=== PATIENT | female | born 1970 | race Caucasian/White ===

== ENCOUNTER 2024-07-18 12:46 | Inpatient (IN) | payer OTHER, SELFPAY ==
--- NOTE | 2024-07-18 | ECG_ITS ---
Test Reason : MEDICAL CLEARANCE Blood Pressure : / mmHG Vent. Rate : 055 BPM Atrial Rate : 055 BPM P-R Int : 206 ms QRS Dur : 082 ms QT Int : 480 ms P-R-T Axes : 043 052 038 degrees QTc Int : 459 ms Sinus bradycardia Nonspecific T wave abnormality Abnormal ECG No previous ECGs available Referred By: Keshav Sarkar Electronically Signed By:MARIKA LOCK MD
[2024-07-18 12:57] VITALS: BP 137/50; PULSE 79; RESP 20; TEMP 36.3; O2SAT 97; BMI 32.0
--- NOTE | 2024-07-18 12:59 | ED_ITS ---
HPI - Psych General Chief Complaint: Psychiatric Symptoms Stated Complaint: requesting higher level care Time Seen by Provider: 07/18/24 13:08 Source: patient Mode of arrival: ambulatory Limitations: no limitations History of Present Illness ED Provider: DR. Sarkar HPI Narrative: A 53-year-old female history of drug abuse patient is been sectioned 35 by her family to stop using cocaine, patient brought in from [facility] for evaluation of depression, SI patient feels depressed and stressed lately has been tearful, feels she should not be a life, no a specific plan to hurt herself, no HI, no hallucination.. Patient otherwise declined CP, SOB, abdominal pain. Related Data Home Medications ?Medication ?Instructions ?Recorded ?Confirmed albuterol 90 mcg/actuation aerosol 90 mcg inhalation Q4H PRN SOB 07/18/24 07/18/24 inhaler albuterol sulfate 2.5 mg/0.5 mL 5 mg inhalation Q4H PRN Shortness 07/18/24 07/18/24 solution for nebulization Of Breath buspirone 15 mg tablet 15 mg PO TID 07/18/24 07/18/24 buspirone 5 mg tablet 5 mg PO TID 07/18/24 07/18/24 clonidine HCl 0.1 mg tablet 0.1 mg PO TID PRN Anxiety 07/18/24 07/18/24 clonidine HCl 0.2 mg tablet 0.2 mg PO TID 07/18/24 07/18/24 doxepin 100 mg capsule 100 mg PO BEDTIME 07/18/24 07/18/24 fluticasone propionate 50 1 spray intranasal DAILY 07/18/24 07/18/24 mcg/actuation nasal spray,suspension lamotrigine 200 mg tablet 200 mg PO BID 07/18/24 07/18/24 lisinopril 20 mg tablet 20 mg PO DAILY 07/18/24 07/18/24 lorazepam 1 mg tablet 1 mg PO DAILY PRN Anxiety 07/18/24 07/18/24 lumateperone 42 mg capsule 42 mg PO DAILY 07/18/24 07/18/24 (Caplyta) methadone 10 mg/mL oral 120 mg PO DAILY 07/18/24 07/18/24 concentrate (Methadone Intensol) topiramate 50 mg tablet 50 mg PO BID 07/18/24 07/18/24 venlafaxine 150 mg 150 mg PO QAM 07/18/24 07/18/24 capsule,extended release 24 hr venlafaxine 75 mg capsule,extended 75 mg PO QAM 07/18/24 07/18/24 release 24 hr Allergies Allergy/AdvReac Type Severity Reaction Status Date / Time diphenhydramine AdvReac Irritable Verified 07/18/24 12:59 [From Benadryl] morphine AdvReac Gastrointestinal Verified 07/18/24 12:59 Upset Review of Systems Review of Systems: All other systems are reviewed and are negative Constitutional: Reports as per HPI and Reports no additional constitutional complaints Eyes: Reports as per HPI and Reports no additional eye complaints Reports system reviewed and no additional complaints, except as documented Cardiovascular: Reports as per HPI and Reports no additional cardiovascular complaints Respiratory: Reports as per HPI and Reports no additional respiratory complaints Gastrointestinal: Reports as per HPI and Reports no additional gastrointestinal complaints Genitourinary: Reports no additional female genitourinary complaints Musculoskeletal: Reports no additional musculoskeletal complaints Skin/Breast: Reports system reviewed and no additional complaints, except as docu Psychiatric: Reports no additional psychiatric complaints Endocrine: Reports no additional endocrine complaints Hematologic/Lymphatic: Reports no additional hematologic/lymphatic complaints Allergic/Immunologic: Reports no additional allergic/immunologic complaints Reports system reviewed and no additional complaints, except as documented and Reports Abnormal speech present [facility] Social History Social History Alcohol intake: current Smoked in Last 30 Days: No Use of substances other than those prescribed or required for medical reasons: Yes Substance Use Type: Crack/Cocaine Substance Use Frequency: Occasionally Advance Directives: No Advance Directives Information Provided: Yes Patient : No Physical Exam Vital Signs: Vital Signs: Last Vital Signs Temp 97.4 F 07/18/24 12:57 Pulse 79 07/18/24 12:57 Resp 20 07/18/24 12:57 BP 137/50 L 07/18/24 12:57 Pulse Ox 97 07/18/24 12:57 O2 Del Method Room Air 07/18/24 12:57 BMI result Body Mass Index 32.0 Vital signs have been reviewed and appear to be correct. Blood pressure elevated. Heart rate normal. Respiratory rate normal. Temperature normal. Oxygen saturation normal. Appearance: Alert. Oriented X3. No acute distress. Head: Normal external exam. Normocephalic. Atraumatic. No Maya signs noted. No raccoon eyes noted Eyes: PERRLA. EOMI. Conjunctiva and sclera normal. Eyelids normal. ENT: TM's Normal. Pharynx normal. Uvula midline. Moist mucous membranes. No trismus noted. No drooling noted. No muffled voice noted. Neck: Normal inspection. Neck supple. FROM. No adenopathy. Thyroid Normal. No meningeal signs. No neck mass noted. CVS: Normal heart rate and rhythm. Heart sound normal. No murmurs noted. Pulses normal throughout. Respiratory: No respiratory distress. Painless inspiration. Breath sounds normal. No wheezes/rales/rhonchi noted. Chest nontender. No accessory muscle usage noted or decreased air movement noted. Abdomen: Soft and nontender. Bowel sounds normal in all 4 quadrants. No distention noted. No organomegaly noted. No visible injury noted. Back: No CVA tenderness. Full range of motion noted. Skin: Skin warm and dry. Normal skin color. Normal skin turgor. No rashes/lesions/lacerations noted. Extremities: No lower extremity edema. Extremities exhibit normal range of motion. Extremities nontender. Neuro: Oriented X 3. Cranial nerve exam: II-XII are grossly intact No motor deficit. No sensory deficit. Reflexes normal. Patient Orientation: Person, Place, Time and Situation, okay hygiene and grooming. Fair eye contact, attentive, no tics or tremors. Level of Consciousness: Awake, Appropriate and Alert Patient Behavior: Appropriate, Guarded, Cooperative and Anxious Mood Description: Constricted, Blunted and Apprehensive Affect Description: Constricted, Blunted and Apprehensive Patient Cognition Impaired: No Ability to Follow Directions: Excellent Speech Pattern: Clear, Appropriate and Spontaneous Speech, nonpressured, spontaneous with regular rate and rhythm, normal volume and prosody. No dysarthria. Memory Description: Intact, Immediate Intact and Short Term Intact Hallucinations: None Delusions: Not Present Thought Process: Intact Thought Content: Feels depressed, depressed affect, feels suicidal with out plans. denies Homicidal Ideation. Depressive Symptoms: Not present. Judgement and Insight: Limited but adequate. Course Course Course Narrative: This is an RME: Additional HPI, ROS, PE not included below will be deferred to primary provider. RME assessment and note performed by: Allison Davies PA-C This is a [id number]-female, with a hx of bipolar, depression, anxiety, opioid use disorder on methadone [facility] in [place], who presents to the emergency department with worsening depression. Reporting she feels as if she is a fog. Reports suicidal ideation without a specific plan. Has been fighting cocaine use lately. Plan: Labs, UA, care team Reevaluation(s) Reevaluation #1: Medically cleared, start physician observation, await for care team input. Time: 14:30 Reevaluation #2: Seen and evaluated by care team, patient is under section 12 now, bed search is underway. Time: 15:15 Medications Administered Generic Name Dose Route Start Last Admin Trade Name Freq PRN Reason Stop Dose Admin Clonidine HCl 0.2 mg 07/18/24 15:00 07/18/24 14:56 Clonidine Hcl 0.2 Mg Tablet PO 0.2 mg TID IRMA Administration Protocol Fluticasone Propionate 1 spray 07/18/24 14:30 07/18/24 14:57 Fluticasone Propionate Nasal 16 Gm [place] NOSTRIL-B Not Given DAILY IRMA Lamotrigine 200 mg 07/18/24 14:30 07/18/24 14:53 Lamotrigine 100 Mg Tablet PO Not Given BID IRMA Lisinopril 20 mg 07/18/24 14:30 07/18/24 14:54 Lisinopril 20 Mg Tablet PO Not Given DAILY IRMA Protocol Lorazepam 1 mg 07/18/24 14:27 07/18/24 14:56 Lorazepam 1 Mg Tablet PO 1 mg DAILY PRN Administration Anxiety Methadone HCl 120 mg 07/18/24 14:30 07/18/24 14:59 Methadone Hcl 20 Mg/2 Ml Oral.Conc PO Not Given DAILY IRMA Topiramate 50 mg 07/18/24 14:30 07/18/24 14:56 Topiramate 25 Mg Tablet PO 50 mg BID IRMA Administration Medical Decision Making Differential Diagnosis Differential Diagnoses: The differential diagnosis associated with the presentation includes (Substance abuse, electrolyte derangement, severe anemia, SI, HI, acute psychosis, medical clearance, psych evaluation.) Admission/Observation Consideration of admission/observation: Escalation of care including admission/observation considered Lab Data MDM Lab Attestation statement: I reviewed the patient's lab results. Labs: Lab Results 07/18/24 Range/Units 13:33 Urine Color Yellow Urine Appearance Cloudy Urine pH 6.0 (5.0-9.0) Ur Specific [place] 1.025 (1.005-1.025) Urine Protein Negative (Neg-Trace) mg/dL Urine Glucose (UA) Negative (Negative) mg/dL Urine Ketones Trace (Negative) mg/dL Urine Blood Negative (Negative) Urine Nitrite Negative (Negative) Ur Leukocyte Esterase Moderate (2+) H (Negative) Urine RBC 0-2 (0-2) /HPF Urine WBC 6-10 (0-5) /HPF Ur Squamous Epith Cells >20 (0-2) /HPF Urine Bacteria 4+ (None Seen) Hyaline Casts 0-2 (0-2) /LPF Urine Test NEGATIVE (NEGATIVE) Urine Opiates Screen Not Detected (Not Detect) Ur Buprenorphine Scrn Not Detected (Not Detect) ng/mL Ur Oxycodone Screen Not Detected (Not Detect) ng/mL Urine Methadone Screen Positive H (Not Detect) ng/mL Urine Fentanyl Screen Not Detected (Not Detect) Ur Barbiturates Screen Not Detected (Not Detect) Ur Phencyclidine Scrn Not Detected (Not Detect) Ur Amphetamines Screen Not Detected (Not Detect) U Benzodiazepines Scrn Not Detected (Not Detect) Urine Cocaine Screen POSITIVE H (Not Detect) U Marijuana (THC) Screen Not Detected (Not Detect) Discharge Plan Discharge Clinical Impression: Depression, Substance abuse Patient Disposition: Still a Patient Prescriptions: No Action clonidine HCl 0.1 mg Tablet 0.1 mg PO TID PRN (Reason: Anxiety) lisinopril 20 mg Tablet 20 mg PO DAILY Ventolin 90 mcg/actuation Aerosol 90 mcg INHALATION Q4H PRN (Reason: SOB) albuterol sulfate 2.5 mg/0.5 mL Solution For Nebulization 5 mg INHALATION Q4H PRN (Reason: Shortness Of Breath) clonidine HCl 0.2 mg Tablet 0.2 mg PO TID Rx Instructions: Take 1 tablet by mouth 3 times a day at 8am, at 2pm and at 8pm doxepin 100 mg Capsule 100 mg PO BEDTIME methadone [Methadone Intensol] 10 mg/mL Concentrate 120 mg PO DAILY lorazepam 1 mg Tablet 1 mg PO DAILY PRN (Reason: Anxiety) venlafaxine 75 mg capsule,extended release 24hr 75 mg PO QAM topiramate 50 mg tablet 50 mg PO BID venlafaxine 150 mg capsule,extended release 24hr 150 mg PO QAM lamotrigine 200 mg Tablet 200 mg PO BID fluticasone propionate 50 mcg/actuation [place],Suspension 1 spray INTRANASAL DAILY Rx Instructions: administer into each nostril buspirone 5 mg Tablet 5 mg PO TID buspirone 15 mg Tablet 15 mg PO TID Caplyta 42 mg Capsule 42 mg PO DAILY Interventions: Potter-Suicide Risk Severity Scale Last Done: 07/18/24 13:47 Print Language: Mauritian
[2024-07-18 13:40] LABS: Appearance Urine Cloudy; Color Urine Yellow; Glucose Urine UA Negative (Negative); Leukocyte Esterase Urine Moderate (2+) (Negative); Nitrite Urine Negative (Negative); Specific Gravity - Urine 1.025 (1.005-1.025); UMIC TRIGGER UACC YES; Urine Blood Negative (Negative); Urine Ketones Trace mg/dL (Negative); Urine Protein Negative (Neg-Trace)
[2024-07-18 13:47] LABS: Bacteria Urine 4+ (None Seen); Hyaline Casts Urine 0-2 /LPF (0-2); RBC Urine 0-2 /HPF (0-2); Squamous Epithelial Cell Urine >20 /HPF (0-2); UACC Culture Trigger YES
[2024-07-18 13:54] LABS: Amphetamine Screen Urine Not Detected (Not Detect); Barbiturates, Urine Not Detected (Not Detect); Benzodiazepines Screen Urine Not Detected (Not Detect); Buprenorphine Scr Not Detected (Not Detect); Cannabinoid Screen Urine Not Detected (Not Detect); Cocaine Screen Urine POSITIVE (Not Detect); Fentanyl, urine Not Detected (Not Detect); Methadone Screen, Urine Positive (Not Detect); Opiate Screen Urine Not Detected (Not Detect); Oxycodone Screen Urine Not Detected (Not Detect); Phencyclidine Screen Urine Not Detected (Not Detect)
--- NOTE | 2024-07-18 14:42 | MHC.CARE ---
Pt meets the criteria for IPLOC and will be an inpatient psychiatric bed search at this time. Section 12a in chart. Provider in agreement with disposition.
[2024-07-18] MEDS: LORazepam 1 MG TABLET PO (14:56)
[2024-07-18] MEDS: Topiramate 25 MG TABLET 50 MG PO ×2 (14:56→21:20)
[2024-07-18] MEDS: cloNIDine HCL 0.2 MG TABLET PO ×2 (14:56→21:20)
[2024-07-18 14:57] LABS: UPreg QC Valid YES; Urine Pregnancy NEGATIVE (NEGATIVE)
[2024-07-18 15:19] LABS: MANUAL DIFF FLAG NO
[2024-07-18 15:21] LABS: Basophils Percent Auto 0.6 % (0-2); Eosinophils Absolute Auto 0.1 X10*3/uL (0.0-0.4); Eosinophils Percent Auto 2.3 % (0-4); Hematocrit 35.9 % (37.0-47.0); Hemoglobin 12.2 g/dl (12.0-16.0); Imm Gran Abs Auto 0.01 X10*3/uL (0.00-0.03); Imm Gran Pct Auto 0.2 % (0.0-0.4); Lymphocytes Absolute Auto 1.3 X10*3/uL (1.2-4.9); Lymphocytes Percent Auto 25.4 % (20-40); Mean Corpuscular Hemoglobin 31.6 pg (27.0-33.0); Mean Platelet Volume 8.8 fL (9.4-12.3); Monocytes Absolute Auto 0.3 X10*3/uL (0.1-1.2); Monocytes Percent Auto 6.7 % (2-11); Neutrophils Absolute Auto 3.3 x10*3/uL (2.0-8.3); Neutrophils Percent Auto 64.8 % (45-73); Platelet Count 213 X10*3/uL (160-400); Red Blood Count 3.86 X10*6/uL (4.20-5.50); Red Cell Distribution Width 12.5 % (11.0-16.0); White Blood Count 5.1 X10*3/uL (4.8-10.8)
[2024-07-18 17:07] LABS: Alanine Aminotransferase 32 U/L (0-31); Alkaline Phosphatase 80 U/L (39-117); Anion Gap 14 (12-20); Aspartate Amino Transferase 40 U/L (5-31); Bilirubin Total 0.4 mg/dL (0.0-1.0); Blood Urea Nitrogen 14 mg/dL (9-16); Carbon Dioxide 27 mmol/L (22-29); Chloride 104 mmol/L (96-108); Creatinine Clr Calc Pharmacy 79.5; Estimated Glomerular Filt Rate > 60; Glucose Random 114 mg/dL (60-115); Potassium 4.2 mmol/L (3.3-5.1); Sodium 141 mmol/L (135-145); Total Protein 7.2 g/dL (6.5-8.0)
--- NOTE | 2024-07-18 18:59 | PC.NURSE ---
patient appears to remain at rest presently respirations are even and unlabored patient appears in no distress
[2024-07-18 21:14] VITALS: BP 151/77; PULSE 60; RESP 16; TEMP 36.6; O2SAT 100
[2024-07-18] MEDS: Doxepin HCl 25 MG CAPSULE 100 MG PO (21:18)
[2024-07-18 21:20] VITALS: BP 151/77
[2024-07-18] MEDS: lamoTRIgine 100 MG TABLET 200 MG PO (21:20)
[2024-07-19] MEDS: LORazepam 1 MG TABLET PO ×2 (00:34→13:00)
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
--- NOTE | 2024-07-19 06:40 | PC.NURSE ---
Paula navarrete received Methadone 120mg on 07/18/24 at 0813 administered by the [facility] clinic in [place], [place]
--- NOTE | 2024-07-19 06:46 | HE.PHANOTE ---
METHADONE Pt receives from [facility] ([phone]). Arnold Amaro at clinic pt last received 120 mg on 07/18/24812.
[2024-07-19 08:00] VITALS: BP 120/62; PULSE 67; RESP 14; TEMP 36.3; O2SAT 97
[2024-07-19] MEDS: methADONE HCl 20 MG/2 ML ORAL.CONC 120 MG PO (08:07)
[2024-07-19] MEDS: LUMATEPERONE 42 MG 42 EACH PO (09:00)
[2024-07-19] MEDS: Venlafaxine HCl ER 150 MG CAP.ER.24H PO (09:01)
[2024-07-19] MEDS: lamoTRIgine 100 MG TABLET 200 MG PO ×2 (09:01→21:45)
[2024-07-19] MEDS: Venlafaxine HCl ER 75 MG CAP.ER.24H PO (09:01)
[2024-07-19] MEDS: Topiramate 25 MG TABLET 50 MG PO (09:01)
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
[2024-07-19 10:07] LABS: Cholesterol 238 mg/dL (<200); HDL Cholesterol 69 mg/dL (>40); LDL Cholesterol Calculated 135 mg/dL (<100); Triglycerides 174 mg/dL (<150)
[2024-07-19 10:08] LABS: Estimated Average Glucose 103 mg/dL; Hemoglobin A1C 104.3139 umol/L; Hemoglobin A1c % 5.2 % (<6.0); Total Hemoglobin (HGBA1C) 3168.1905 umol/L
[2024-07-19 10:24] LABS: Free T4 (Free Thyroxine) 0.83 ng/dL (0.71-1.85); Thyroid Stimulating Hormone 2.59 uIU/mL (0.32-4.0)
[2024-07-19] MEDS: cloNIDine HCL 0.2 MG TABLET PO ×3 (10:26→21:45)
[2024-07-19 10:36] LABS: Vitamin B12 253 pg/mL (200-900)
[2024-07-19 11:31] VITALS: BP 127/66
[2024-07-19] MEDS: cloNIDine HCL 0.1 MG TABLET PO (11:31)
[2024-07-19 14:56] VITALS: BP 119/61
[2024-07-19 20:00] VITALS: BP 149/69; PULSE 67; RESP 18; TEMP 36.7; O2SAT 99
[2024-07-19] MEDS: Doxepin HCl 25 MG CAPSULE 100 MG PO (21:44)
[2024-07-19 21:45] VITALS: BP 129/65
[2024-07-20] MEDS: LORazepam 1 MG TABLET PO ×2 (07:07→21:22)
[2024-07-20] MEDS: methADONE HCl 20 MG/2 ML ORAL.CONC 120 MG PO (07:43)
[2024-07-20 07:44] VITALS: BP 155/78; PULSE 72; RESP 18; TEMP 36.6; O2SAT 97
[2024-07-20] MEDS: Venlafaxine HCl ER 150 MG CAP.ER.24H PO (08:26)
[2024-07-20] MEDS: Fluticasone Propionate Nasal 16 GM SPRAY 1 SPRAY NOSTRIL-B (08:26)
[2024-07-20] MEDS: cloNIDine HCL 0.2 MG TABLET PO ×2 (08:26→15:58)
[2024-07-20] MEDS: lamoTRIgine 100 MG TABLET 200 MG PO ×2 (08:26→20:43)
[2024-07-20] MEDS: Venlafaxine HCl ER 75 MG CAP.ER.24H PO (08:26)
[2024-07-20 13:08] VITALS: BP 134/65
[2024-07-20] MEDS: cloNIDine HCL 0.1 MG TABLET PO (13:08)
[2024-07-20 15:58] VITALS: BP 156/72
--- NOTE | 2024-07-20 16:19 | HO.PSYCHPN ---
Subjective Subjective Date of Service: 07/20/24 Reason For Visit: SI Interim History: stressed with unit acuity. woke up a few times in the night. agreeable to increase HS clonidine to 0.3 mg. per staff, slept 8 hours. dep/anx. labile. +meds. Mental Status Exam Mental Status Exam Narrative: adequately dressed and groomed. cooperative. no PMA/PMR. speech nml rate and loudness, increased amount, decr latency. thoughts linear and logical. no delusions or paranoia expressed. affect full range, labile, hyper-intense. mood hopeless. no SI/HI/AVH expressed. Diagnostics Vital Signs (24Hr): Vital Signs - 24 hr 07/19/24 20:00 07/19/24 21:45 07/20/24 07:44 Temperature 98.0 F 97.9 F Pulse Rate 67 72 Respiratory Rate 18 18 Blood Pressure 149/69 H 129/65 155/78 H Pulse Oximetry 99 97 Oxygen Delivery Method Room Air Room Air 07/20/24 13:08 07/20/24 15:58 Temperature Pulse Rate Respiratory Rate Blood Pressure 134/65 156/72 H Pulse Oximetry Oxygen Delivery Method BMI result Body Mass Index 30.0 Labs 07/18/24 15:14 07/18/24 16:36 Labs: Laboratory Results - last 48 hr 07/18/24 07/19/24 16:36 09:15 Sodium 141 Potassium 4.2 Chloride 104 Carbon Dioxide 27 Anion Gap 14 BUN 14 Creatinine 0.78 Estim Creat Clear Calc 79.5 Estimated GFR > 60 Random Glucose 114 Estimat Average Glucose 103 Hemoglobin A1c % 5.2 Calcium 9.0 Total Bilirubin 0.4 AST 40 H ALT 32 H Alkaline Phosphatase 80 Total Protein 7.2 Albumin 4.0 Triglycerides 174 H Cholesterol 238 H LDL Cholesterol, Calc 135 H HDL Cholesterol 69 Vitamin B12 253 Folate 14.0 TSH 2.59 Free T4 0.83 Medications Medications Current Medications Acetaminophen (Acetaminophen 325 Mg Tablet) 650 mg PO Q6H PRN PRN Reason: Headache/Pain Mild Scale (1-3) Al Hydroxide/Mg Hydroxide (Magnesium Hydrox/Alum Hydrox 30 Ml Oral.Susp) 30 ml PO Q6H PRN PRN Reason: Heartburn/Nausea Albuterol Sulfate (Albuterol Sulfate (0.083%) 2.5 Mg/3 Ml Vial.Neb) 5 mg INHALE Q4H PRN PRN Reason: Shortness Of Breath Albuterol Sulfate (Albuterol Sulfate 90 Mcg 8 Gm Inhaler) 90 puff INHALE Q4H PRN PRN Reason: Shortness of Breath Clonidine HCl (Clonidine Hcl 0.1 Mg Tablet) 0.1 mg PO TID PRN; Protocol PRN Reason: Anxiety Last Admin: 07/20/24 13:08 Dose: 0.1 mg Clonidine HCl (Clonidine Hcl 0.2 Mg Tablet) 0.2 mg PO BID@0900,1500 [facility]; Protocol Last Admin: 07/20/24 15:58 Dose: 0.2 mg Clonidine HCl (Clonidine Hcl 0.1 Mg Tablet) 0.3 mg PO BEDTIME [facility]; Protocol Doxepin HCl (Doxepin Hcl 25 Mg Capsule) 100 mg PO BEDTIME [facility] Last Admin: 07/19/24 21:44 Dose: 100 mg Fluticasone Propionate (Fluticasone Propionate Nasal 16 Gm [place]) 1 spray NOSTRIL-B DAILY [facility] Last Admin: 07/20/24 08:26 Dose: 1 spray Hydroxyzine HCl (Hydroxyzine Hcl 25 Mg Tablet) 25 mg PO Q6H PRN PRN Reason: Anxiety Lamotrigine (Lamotrigine 100 Mg Tablet) 200 mg PO BID [facility] Last Admin: 07/20/24 08:26 Dose: 200 mg Lorazepam (Lorazepam 1 Mg Tablet) 1 mg PO DAILY PRN PRN Reason: Anxiety Last Admin: 07/20/24 07:07 Dose: 1 mg Magnesium Hydroxide (Milk Of Magnesia 30 Ml Oral.Susp) 30 ml PO DAILY PRN PRN Reason: Constipation Methadone HCl (Methadone Hcl 20 Mg/2 Ml Oral.Conc) 120 mg PO DAILY [facility] Last Admin: 07/20/24 07:43 Dose: 120 mg Nicotine Polacrilex (Nicotine Polacrilex 2 Mg Gum) 4 mg BUCCAL Q2H PRN PRN Reason: Nicotine Cravings Trazodone HCl (Trazodone Hcl 50 Mg Tablet) 50 mg PO BEDTIME MRX1 PRN PRN Reason: Insomnia Venlafaxine HCl (Venlafaxine Hcl Er 75 Mg Cap.Er.24h) 75 mg PO DAILY [facility] Last Admin: 07/20/24 08:26 Dose: 75 mg Venlafaxine HCl (Venlafaxine Hcl Er 150 Mg Cap.Er.24h) 150 mg PO DAILY [facility] Last Admin: 07/20/24 08:26 Dose: 150 mg Allergies Allergies Allergy/AdvReac Type Severity Reaction Status Date / Time diphenhydramine AdvReac Irritable Verified 07/18/24 12:59 [From Benadryl] morphine AdvReac Gastrointestinal Verified 07/18/24 12:59 Upset Assessment & Plan Assessment & Plan (1) Cocaine use disorder: Status: Acute Code(s): F14.10 - Cocaine abuse, uncomplicated (2) Opioid use disorder, severe, on maintenance therapy: Status: Acute Code(s): F11.20 - Opioid dependence, uncomplicated (3) Depression: Status: Acute Code(s): F32.A - Depression, unspecified Plan 07/19: DC topamax, capylta as unhelpful. continue medications otherwise. verified ativan script only for 1 mg daily PRN, not TID as pt claims. D/W SW dispo plan. 07/20: poor sleep. HTN. increase HS clonidine to 0.3 mg. otherwise continue current mgmt. [facility] referral made. Reason for continued inpatient stay Substantial Risk for: inability to function and rapid decompensation Time Spent With Patient Time: Total time managing care of this patient today __25__ minutes.
[2024-07-20 20:00] VITALS: BP 195/85; PULSE 94; RESP 21; TEMP 36.1; O2SAT 97
[2024-07-20 20:43] VITALS: BP 195/85
[2024-07-20] MEDS: cloNIDine HCL 0.1 MG TABLET 0.3 MG PO (20:43)
[2024-07-20] MEDS: Doxepin HCl 25 MG CAPSULE 100 MG PO (20:43)
[2024-07-21 07:38] VITALS: BP 142/82; PULSE 67; RESP 14; TEMP 36.4; O2SAT 97
[2024-07-21] MEDS: methADONE HCl 20 MG/2 ML ORAL.CONC 120 MG PO (08:13)
[2024-07-21 08:45] VITALS: BP 147/82
[2024-07-21] MEDS: cloNIDine HCL 0.2 MG TABLET PO (08:45)
[2024-07-21] MEDS: Venlafaxine HCl ER 150 MG CAP.ER.24H PO (08:45)
[2024-07-21] MEDS: lamoTRIgine 100 MG TABLET 200 MG PO ×2 (08:45→20:23)
[2024-07-21] MEDS: LORazepam 1 MG TABLET PO (08:45)
[2024-07-21] MEDS: Venlafaxine HCl ER 75 MG CAP.ER.24H PO (08:45)
[2024-07-21] MEDS: Fluticasone Propionate Nasal 16 GM SPRAY 1 SPRAY NOSTRIL-B (08:49)
[2024-07-21] MEDS: cloNIDine HCL 0.1 MG TABLET 0.3 MG PO ×2 (14:59→20:22)
[2024-07-21] MEDS: hydrOXYzine HCL 25 MG TABLET PO (15:00)
[2024-07-21] MEDS: OLANZapine ODT 10 MG TAB.RAPDIS TRANSLINGU ×2 (18:13→20:23)
--- NOTE | 2024-07-21 19:21 | P.PNPSI_ITS ---
Subjective Subjective Date of Service: 07/21/24 Reason For Visit: SI Interim History: sobbing for prolonged period without tears, asking for benzos and calling MD callous, insensitive, etc for not helping her with benzos. pt finally left the interview as culmination of emotional display. per staff, taking meds. not attending groups. anxious eves. had ativan with good effect. awaiting word from [facility]. Mental Status Exam Mental Status Exam Narrative: adequately dressed and groomed. cooperative. no PMA/PMR. speech nml rate and loudness, increased amount, decr latency. thoughts linear and logical. no delusions or paranoia expressed. affect constricted, hyper-intense, crying without tears. mood hopeless. i might as well kill myself as she walked out of the interview room. no HI/AVH expressed. Diagnostics Vital Signs (24Hr): Vital Signs - 24 hr 07/20/24 20:00 07/20/24 20:43 07/21/24 07:38 Temperature 97 F 97.6 F Pulse Rate 94 67 Respiratory Rate 21 H 14 Blood Pressure 195/85 H 195/85 H 142/82 H Pulse Oximetry 97 97 Oxygen Delivery Method Room Air Room Air 07/21/24 08:45 Temperature Pulse Rate Respiratory Rate Blood Pressure 147/82 H Pulse Oximetry Oxygen Delivery Method BMI result Body Mass Index 30.0 Labs 07/18/24 15:14 07/18/24 16:36 Medications Medications Current Medications Acetaminophen (Acetaminophen 325 Mg Tablet) 650 mg PO Q6H PRN PRN Reason: Headache/Pain Mild Scale (1-3) Al Hydroxide/Mg Hydroxide (Magnesium Hydrox/Alum Hydrox 30 Ml Oral.Susp) 30 ml PO Q6H PRN PRN Reason: Heartburn/Nausea Albuterol Sulfate (Albuterol Sulfate (0.083%) 2.5 Mg/3 Ml Vial.Neb) 5 mg INHALE Q4H PRN PRN Reason: Shortness Of Breath Albuterol Sulfate (Albuterol Sulfate 90 Mcg 8 Gm Inhaler) 90 puff INHALE Q4H PRN PRN Reason: Shortness of Breath Clonidine HCl (Clonidine Hcl 0.1 Mg Tablet) 0.1 mg PO TID PRN; Protocol PRN Reason: Anxiety Last Admin: 07/20/24 13:08 Dose: 0.1 mg Clonidine HCl (Clonidine Hcl 0.1 Mg Tablet) 0.3 mg PO TID [facility]; Protocol Last Admin: 07/21/24 14:59 Dose: 0.3 mg Doxepin HCl (Doxepin Hcl 25 Mg Capsule) 100 mg PO BEDTIME [facility] Last Admin: 07/20/24 20:43 Dose: 100 mg Fluticasone Propionate (Fluticasone Propionate Nasal 16 Gm [place]) 1 spray NOSTRIL-B DAILY [facility] Last Admin: 07/21/24 08:49 Dose: 1 spray Hydroxyzine HCl (Hydroxyzine Hcl 25 Mg Tablet) 25 mg PO Q6H PRN PRN Reason: Anxiety Last Admin: 07/21/24 15:00 Dose: 25 mg Lamotrigine (Lamotrigine 100 Mg Tablet) 200 mg PO BID [facility] Last Admin: 07/21/24 08:45 Dose: 200 mg Lorazepam (Lorazepam 1 Mg Tablet) 1 mg PO DAILY PRN PRN Reason: Anxiety Last Admin: 07/21/24 08:45 Dose: 1 mg Magnesium Hydroxide (Milk Of Magnesia 30 Ml Oral.Susp) 30 ml PO DAILY PRN PRN Reason: Constipation Methadone HCl (Methadone Hcl 20 Mg/2 Ml Oral.Conc) 120 mg PO DAILY [facility] Last Admin: 07/21/24 08:13 Dose: 120 mg Nicotine Polacrilex (Nicotine Polacrilex 2 Mg Gum) 4 mg BUCCAL Q2H PRN PRN Reason: Nicotine Cravings Trazodone HCl (Trazodone Hcl 50 Mg Tablet) 50 mg PO BEDTIME MRX1 PRN PRN Reason: Insomnia Venlafaxine HCl (Venlafaxine Hcl Er 75 Mg Cap.Er.24h) 75 mg PO DAILY [facility] Last Admin: 07/21/24 08:45 Dose: 75 mg Venlafaxine HCl (Venlafaxine Hcl Er 150 Mg Cap.Er.24h) 150 mg PO DAILY [facility] Last Admin: 07/21/24 08:45 Dose: 150 mg Allergies Allergies Allergy/AdvReac Type Severity Reaction Status Date / Time diphenhydramine AdvReac Irritable Verified 07/18/24 12:59 [From Benadryl] morphine AdvReac Gastrointestinal Verified 07/18/24 12:59 Upset Assessment & Plan Assessment & Plan (1) Cocaine use disorder: Status: Acute Code(s): F14.10 - Cocaine abuse, uncomplicated (2) Opioid use disorder, severe, on maintenance therapy: Status: Acute Code(s): F11.20 - Opioid dependence, uncomplicated (3) Depression: Status: Acute Code(s): F32.A - Depression, unspecified Plan 07/19: DC topamax, caplyta as unhelpful. continue medications otherwise. verified ativan script only for 1 mg daily PRN, not TID as pt claims. D/W SW dispo plan. 07/20: poor sleep. HTN. increase HS clonidine to 0.3 mg. otherwise continue current mgmt. [facility] referral made. 07/21: c/o anxiety, focused on getting benzos, very dramatic emotional display in that effort. ended up walking out of the interview room when responses from MD were perceived to be inadequately supportive. awaiting bed at [facility]. do not modify benzo script. Reason for continued inpatient stay Substantial Risk for: harm to self and inability to function Time Spent With Patient Time: Total time managing care of this patient today __25__ minutes.
[2024-07-21 20:14] VITALS: BP 145/79; PULSE 78; RESP 16; TEMP 36.7; O2SAT 96
[2024-07-21] MEDS: Doxepin HCl 25 MG CAPSULE 100 MG PO (20:22)
[2024-07-22] MEDS: methADONE HCl 20 MG/2 ML ORAL.CONC 120 MG PO (07:49)
[2024-07-22 08:07] VITALS: BP 145/71; PULSE 67; RESP 14; TEMP 36.6; O2SAT 97
[2024-07-22] MEDS: cloNIDine HCL 0.1 MG TABLET 0.3 MG PO ×3 (08:10→22:22)
[2024-07-22] MEDS: Venlafaxine HCl ER 75 MG CAP.ER.24H PO (08:10)
[2024-07-22] MEDS: lamoTRIgine 100 MG TABLET 200 MG PO ×2 (08:10→22:20)
[2024-07-22] MEDS: Venlafaxine HCl ER 150 MG CAP.ER.24H PO (08:10)
[2024-07-22] MEDS: OLANZapine ODT 10 MG TAB.RAPDIS TRANSLINGU ×2 (08:22→14:15)
[2024-07-22] MEDS: LORazepam 1 MG TABLET PO (08:22)
[2024-07-22] MEDS: hydrOXYzine HCL 25 MG TABLET PO (09:46)
[2024-07-22 10:00] VITALS: BP 105/53; PULSE 80; RESP 16
--- NOTE | 2024-07-22 10:17 | P.PNPSI_ITS ---
Subjective Subjective Date of Service: 07/22/24 Reason For Visit: SI Interim History: Noted yesterday, documentation around treatment planning and in particular benzodiazepines. Awaiting bed at the [facility]. Reports anxiety is very high and with that suicidal thoughts. No plans or intent. Has been agitated at times and Zydis appears to be helpful. Nodding off at times which appears to be related to him 120 mg of methadone. Overall we discussed scheduling zydis twice daily morning and dinnertime hopefully minimizing as needed doses and also agitation. Medication Compliance: Yes Side effects from medications: No Attending Groups: Intermittent Review of Systems Acute medical concerns: No Review of Systems Review of Systems Unremarkable Mental Status Exam Mental Status Exam Narrative: adequately dressed and groomed. cooperative. no PMA/PMR. speech nml rate and loudness, increased amount, decr latency. thoughts linear and logical. no delusions or paranoia expressed. affect constricted, endorses feeling depressed and anxious. Suicidal thoughts but no plans or intent. Diagnostics Vital Signs (24Hr): Vital Signs - 24 hr 07/21/24 20:14 07/22/24 08:07 Temperature 98.1 F 97.8 F Pulse Rate 78 67 Respiratory Rate 16 14 Blood Pressure 145/79 H 145/71 H Pulse Oximetry 96 97 Oxygen Delivery Method Room Air Room Air BMI result Body Mass Index 30.0 Labs 07/18/24 15:14 07/18/24 16:36 Medications Medications Current Medications Acetaminophen (Acetaminophen 325 Mg Tablet) 650 mg PO Q6H PRN PRN Reason: Headache/Pain Mild Scale (1-3) Al Hydroxide/Mg Hydroxide (Magnesium Hydrox/Alum Hydrox 30 Ml Oral.Susp) 30 ml PO Q6H PRN PRN Reason: Heartburn/Nausea Albuterol Sulfate (Albuterol Sulfate (0.083%) 2.5 Mg/3 Ml Vial.Neb) 5 mg INHALE Q4H PRN PRN Reason: Shortness Of Breath Albuterol Sulfate (Albuterol Sulfate 90 Mcg 8 Gm Inhaler) 90 puff INHALE Q4H PRN PRN Reason: Shortness of Breath Clonidine HCl (Clonidine Hcl 0.1 Mg Tablet) 0.1 mg PO TID PRN; Protocol PRN Reason: Anxiety Last Admin: 07/20/24 13:08 Dose: 0.1 mg Clonidine HCl (Clonidine Hcl 0.1 Mg Tablet) 0.3 mg PO TID [facility]; Protocol Last Admin: 07/22/24 08:10 Dose: 0.3 mg Doxepin HCl (Doxepin Hcl 25 Mg Capsule) 100 mg PO BEDTIME [facility] Last Admin: 07/21/24 20:22 Dose: 100 mg Fluticasone Propionate (Fluticasone Propionate Nasal 16 Gm [place]) 1 spray NOSTRIL-B DAILY [facility] Last Admin: 07/22/24 08:13 Dose: Not Given Hydroxyzine HCl (Hydroxyzine Hcl 25 Mg Tablet) 25 mg PO Q6H PRN PRN Reason: Anxiety Last Admin: 07/22/24 09:46 Dose: 25 mg Lamotrigine (Lamotrigine 100 Mg Tablet) 200 mg PO BID [facility] Last Admin: 07/22/24 08:10 Dose: 200 mg Lorazepam (Lorazepam 1 Mg Tablet) 1 mg PO DAILY PRN PRN Reason: Anxiety Last Admin: 07/22/24 08:22 Dose: 1 mg Magnesium Hydroxide (Milk Of Magnesia 30 Ml Oral.Susp) 30 ml PO DAILY PRN PRN Reason: Constipation Methadone HCl (Methadone Hcl 20 Mg/2 Ml Oral.Conc) 120 mg PO DAILY [facility] Last Admin: 07/22/24 07:49 Dose: 120 mg Nicotine Polacrilex (Nicotine Polacrilex 2 Mg Gum) 4 mg BUCCAL Q2H PRN PRN Reason: Nicotine Cravings Olanzapine (Olanzapine Odt 10 Mg Tab.Rapdis) 10 mg TRANSLINGU BID PRN PRN Reason: Agitation Last Admin: 07/22/24 08:22 Dose: 10 mg Trazodone HCl (Trazodone Hcl 50 Mg Tablet) 50 mg PO BEDTIME MRX1 PRN PRN Reason: Insomnia Venlafaxine HCl (Venlafaxine Hcl Er 75 Mg Cap.Er.24h) 75 mg PO DAILY [facility] Last Admin: 07/22/24 08:10 Dose: 75 mg Venlafaxine HCl (Venlafaxine Hcl Er 150 Mg Cap.Er.24h) 150 mg PO DAILY [facility] Last Admin: 07/22/24 08:10 Dose: 150 mg Allergies Allergies Allergy/AdvReac Type Severity Reaction Status Date / Time diphenhydramine AdvReac Irritable Verified 07/18/24 12:59 [From Benadryl] morphine AdvReac Gastrointestinal Verified 07/18/24 12:59 Upset Assessment & Plan Assessment & Plan (1) Cocaine use disorder: Status: Acute Code(s): F14.10 - Cocaine abuse, uncomplicated (2) Opioid use disorder, severe, on maintenance therapy: Status: Acute Code(s): F11.20 - Opioid dependence, uncomplicated (3) Depression: Status: Acute Code(s): F32.A - Depression, unspecified Plan 07/19: DC topamax, caplyta as unhelpful. continue medications otherwise. verified ativan script only for 1 mg daily PRN, not TID as pt claims. D/W SW dispo plan. 07/20: poor sleep. HTN. increase HS clonidine to 0.3 mg. otherwise continue current mgmt. [facility] referral made. 07/21: c/o anxiety, focused on getting benzos, very dramatic emotional display in that effort. ended up walking out of the interview room when responses from MD were perceived to be inadequately supportive. awaiting bed at [facility]. do not modify benzo script. 07/22/2024: Schedule olanzapine 5 mg morning and bedtime. Reason for continued inpatient stay Substantial Risk for: harm to self and rapid decompensation Time Spent With Patient Time: Total time managing care of this patient today ____ minutes.
[2024-07-22 14:13] VITALS: BP 130/72; PULSE 73
[2024-07-22 22:17] VITALS: BP 139/67; PULSE 72; RESP 16; TEMP 35.9; O2SAT 96
[2024-07-22] MEDS: OLANZapine 5 MG TABLET PO (22:20)
[2024-07-22] MEDS: Doxepin HCl 25 MG CAPSULE 100 MG PO (22:21)
[2024-07-22 22:22] VITALS: BP 139/67
[2024-07-23] MEDS: methADONE HCl 20 MG/2 ML ORAL.CONC 120 MG PO (07:51)
[2024-07-23 08:15] VITALS: BP 142/79; PULSE 78; RESP 14; TEMP 36.4; O2SAT 97
[2024-07-23] MEDS: lamoTRIgine 100 MG TABLET 200 MG PO ×2 (08:35→20:37)
[2024-07-23] MEDS: Venlafaxine HCl ER 75 MG CAP.ER.24H PO (08:36)
[2024-07-23] MEDS: hydrOXYzine HCL 25 MG TABLET PO ×2 (08:36→14:48)
[2024-07-23] MEDS: cloNIDine HCL 0.1 MG TABLET 0.3 MG PO ×3 (08:36→20:37)
[2024-07-23] MEDS: LORazepam 1 MG TABLET PO (08:37)
[2024-07-23] MEDS: OLANZapine 5 MG TABLET PO ×2 (08:37→16:04)
[2024-07-23] MEDS: Venlafaxine HCl ER 150 MG CAP.ER.24H PO (08:37)
--- NOTE | 2024-07-23 10:26 | HO.PSYCHPN ---
Subjective Subjective Date of Service: 07/23/24 Reason For Visit: SI Medical Problems Affecting Mental Status: No Interim History: Reports anxiety and mood are better today and feels current med regimen is helpful. No SI. NO agitation. Attending groups. Awaiting bed at the [facility]. Medication Compliance: Yes Side effects from medications: No Attending Groups: Yes Review of Systems Acute medical concerns: No Review of Systems Review of Systems Unremarkable Mental Status Exam Mental Status Exam Narrative: adequately dressed and groomed. cooperative. no PMA/PMR. speech nml rate and loudness, increased amount, decr latency. thoughts linear and logical. no delusions or paranoia expressed. affect constricted, endorses feeling less depressed and anxious. No SI today Diagnostics Vital Signs (24Hr): Vital Signs - 24 hr 07/22/24 14:13 07/22/24 22:17 07/22/24 22:22 Temperature 96.6 F L Pulse Rate 73 72 Respiratory Rate 16 Blood Pressure 130/72 139/67 139/67 Pulse Oximetry 96 Oxygen Delivery Method Room Air 07/23/24 08:15 Temperature 97.6 F Pulse Rate 78 Respiratory Rate 14 Blood Pressure 142/79 H Pulse Oximetry 97 Oxygen Delivery Method Room Air BMI result Body Mass Index 30.0 Labs 07/18/24 15:14 07/18/24 16:36 Medications Medications Current Medications Acetaminophen (Acetaminophen 325 Mg Tablet) 650 mg PO Q6H PRN PRN Reason: Headache/Pain Mild Scale (1-3) Al Hydroxide/Mg Hydroxide (Magnesium Hydrox/Alum Hydrox 30 Ml Oral.Susp) 30 ml PO Q6H PRN PRN Reason: Heartburn/Nausea Albuterol Sulfate (Albuterol Sulfate (0.083%) 2.5 Mg/3 Ml Vial.Neb) 5 mg INHALE Q4H PRN PRN Reason: Shortness Of Breath Albuterol Sulfate (Albuterol Sulfate 90 Mcg 8 Gm Inhaler) 90 puff INHALE Q4H PRN PRN Reason: Shortness of Breath Clonidine HCl (Clonidine Hcl 0.1 Mg Tablet) 0.1 mg PO TID PRN; Protocol PRN Reason: Anxiety Last Admin: 07/20/24 13:08 Dose: 0.1 mg Clonidine HCl (Clonidine Hcl 0.1 Mg Tablet) 0.3 mg PO TID [facility]; Protocol Last Admin: 12/15/24 08:36 Dose: 0.3 mg Doxepin HCl (Doxepin Hcl 25 Mg Capsule) 100 mg PO BEDTIME [facility] Last Admin: 07/22/24 22:21 Dose: 100 mg Fluticasone Propionate (Fluticasone Propionate Nasal 16 Gm [place]) 1 spray NOSTRIL-B DAILY [facility] Last Admin: 07/23/24 08:38 Dose: Not Given Hydroxyzine HCl (Hydroxyzine Hcl 25 Mg Tablet) 25 mg PO Q6H PRN PRN Reason: Anxiety Last Admin: 07/23/24 08:36 Dose: 25 mg Lamotrigine (Lamotrigine 100 Mg Tablet) 200 mg PO BID [facility] Last Admin: 07/23/24 08:35 Dose: 200 mg Lorazepam (Lorazepam 1 Mg Tablet) 1 mg PO DAILY PRN PRN Reason: Anxiety Last Admin: 07/23/24 08:37 Dose: 1 mg Magnesium Hydroxide (Milk Of Magnesia 30 Ml Oral.Susp) 30 ml PO DAILY PRN PRN Reason: Constipation Methadone HCl (Methadone Hcl 20 Mg/2 Ml Oral.Conc) 120 mg PO DAILY [facility] Last Admin: 07/23/24 07:51 Dose: 120 mg Nicotine Polacrilex (Nicotine Polacrilex 2 Mg Gum) 4 mg BUCCAL Q2H PRN PRN Reason: Nicotine Cravings Olanzapine (Olanzapine Odt 10 Mg Tab.Rapdis) 10 mg TRANSLINGU BID PRN PRN Reason: Agitation Last Admin: 07/22/24 14:15 Dose: 10 mg Olanzapine (Olanzapine 5 Mg Tablet) 5 mg PO BID [facility] Last Admin: 07/23/24 08:37 Dose: 5 mg Trazodone HCl (Trazodone Hcl 50 Mg Tablet) 50 mg PO BEDTIME MRX1 PRN PRN Reason: Insomnia Venlafaxine HCl (Venlafaxine Hcl Er 75 Mg Cap.Er.24h) 75 mg PO DAILY [facility] Last Admin: 07/23/24 08:36 Dose: 75 mg Venlafaxine HCl (Venlafaxine Hcl Er 150 Mg Cap.Er.24h) 150 mg PO DAILY [facility] Last Admin: 07/23/24 08:37 Dose: 150 mg Allergies Allergies Allergy/AdvReac Type Severity Reaction Status Date / Time diphenhydramine AdvReac Irritable Verified 07/18/24 12:59 [From Benadryl] morphine AdvReac Gastrointestinal Verified 07/18/24 12:59 Upset Assessment & Plan Assessment & Plan (1) Cocaine use disorder: Status: Acute Code(s): F14.10 - Cocaine abuse, uncomplicated (2) Opioid use disorder, severe, on maintenance therapy: Status: Acute Code(s): F11.20 - Opioid dependence, uncomplicated (3) Depression: Status: Acute Code(s): F32.A - Depression, unspecified Plan 07/19: DC topamax, caplyta as unhelpful. continue medications otherwise. verified ativan script only for 1 mg daily PRN, not TID as pt claims. D/W SW dispo plan. 07/20: poor sleep. HTN. increase HS clonidine to 0.3 mg. otherwise continue current mgmt. [facility] referral made. 07/21: c/o anxiety, focused on getting benzos, very dramatic emotional display in that effort. ended up walking out of the interview room when responses from MD were perceived to be inadequately supportive. awaiting bed at [facility]. do not modify benzo script. 07/22/2024: Schedule olanzapine 5 mg morning and bedtime. 07/23: no changes Reason for continued inpatient stay Substantial Risk for: rapid decompensation Time Spent With Patient Time: Total time managing care of this patient today ____ minutes.
[2024-07-23] MEDS: OLANZapine ODT 10 MG TAB.RAPDIS TRANSLINGU ×2 (11:21→14:45)
[2024-07-23 14:43] VITALS: BP 143/82; PULSE 79
[2024-07-23 20:35] VITALS: BP 156/82; PULSE 81; RESP 18; TEMP 36.9; O2SAT 95
[2024-07-23] MEDS: Doxepin HCl 25 MG CAPSULE 100 MG PO (20:36)
[2024-07-24] MEDS: hydrOXYzine HCL 25 MG TABLET PO ×2 (02:55→12:15)
[2024-07-24] MEDS: OLANZapine ODT 10 MG TAB.RAPDIS TRANSLINGU (02:55)
[2024-07-24 07:56] VITALS: BP 154/70; PULSE 75; RESP 16; TEMP 36.4; O2SAT 95
[2024-07-24] MEDS: methADONE HCl 20 MG/2 ML ORAL.CONC 120 MG PO (08:00)
[2024-07-24] MEDS: cloNIDine HCL 0.1 MG TABLET 0.3 MG PO ×3 (08:34→20:14)
[2024-07-24] MEDS: Venlafaxine HCl ER 150 MG CAP.ER.24H PO (08:35)
[2024-07-24] MEDS: LORazepam 1 MG TABLET PO (08:35)
[2024-07-24] MEDS: OLANZapine 5 MG TABLET PO ×2 (08:35→17:25)
[2024-07-24] MEDS: Venlafaxine HCl ER 75 MG CAP.ER.24H PO (08:35)
[2024-07-24] MEDS: lamoTRIgine 100 MG TABLET 200 MG PO ×2 (08:36→20:14)
[2024-07-24 11:11] VITALS: BP 183/103
[2024-07-24] MEDS: cloNIDine HCL 0.1 MG TABLET PO (11:11)
[2024-07-24 11:15] VITALS: BP 183/103; PULSE 80
[2024-07-24 14:33] VITALS: BP 147/76; PULSE 80
[2024-07-24] MEDS: OLANZapine 10 MG TABLET PO (14:37)
--- NOTE | 2024-07-24 14:45 | P.PNPSI_ITS ---
Subjective Subjective Date of Service: 07/24/24 Reason For Visit: SI Interim History: discussed discharge , which caused pt anxiety. pt will investigate options in the community from whence she came in preparation for discharge. per staff, using lots of PRNs. low frustration tolerance. labile, tearful. slept 8 hours. Mental Status Exam Mental Status Exam Narrative: adequately dressed and groomed. cooperative. no PMA/PMR. speech nml rate and loudness, increased amount, decr latency. thoughts linear and logical. no delusions or paranoia expressed. affect constricted, labile/tearful. No SI/HI/AVH expressed today. Diagnostics Vital Signs (24Hr): Vital Signs - 24 hr 07/23/24 20:35 07/24/24 07:56 07/24/24 11:11 Temperature 98.4 F 97.5 F Pulse Rate 81 75 Respiratory Rate 18 16 Blood Pressure 156/82 H 154/70 H 183/103 H Pulse Oximetry 95 95 Oxygen Delivery Method Room Air Room Air 07/24/24 11:15 07/24/24 14:33 Temperature Pulse Rate 80 80 Respiratory Rate Blood Pressure 183/103 H 147/76 H Pulse Oximetry Oxygen Delivery Method BMI result Body Mass Index 30.0 Labs 07/18/24 15:14 07/18/24 16:36 Medications Medications Current Medications Acetaminophen (Acetaminophen 325 Mg Tablet) 650 mg PO Q6H PRN PRN Reason: Headache/Pain Mild Scale (1-3) Al Hydroxide/Mg Hydroxide (Magnesium Hydrox/Alum Hydrox 30 Ml Oral.Susp) 30 ml PO Q6H PRN PRN Reason: Heartburn/Nausea Albuterol Sulfate (Albuterol Sulfate (0.083%) 2.5 Mg/3 Ml Vial.Neb) 5 mg INHALE Q4H PRN PRN Reason: Shortness Of Breath Albuterol Sulfate (Albuterol Sulfate 90 Mcg 8 Gm Inhaler) 90 puff INHALE Q4H PRN PRN Reason: Shortness of Breath Clonidine HCl (Clonidine Hcl 0.1 Mg Tablet) 0.1 mg PO TID PRN; Protocol PRN Reason: Anxiety Last Admin: 07/24/24 11:11 Dose: 0.1 mg Clonidine HCl (Clonidine Hcl 0.1 Mg Tablet) 0.3 mg PO TID IRMA; Protocol Last Admin: 07/24/24 14:37 Dose: 0.3 mg Doxepin HCl (Doxepin Hcl 25 Mg Capsule) 100 mg PO BEDTIME [facility] Last Admin: 07/23/24 20:36 Dose: 100 mg Fluticasone Propionate (Fluticasone Propionate Nasal 16 Gm [place]) 1 spray NOSTRIL-B DAILY [facility] Last Admin: 07/24/24 08:38 Dose: Not Given Hydroxyzine HCl (Hydroxyzine Hcl 25 Mg Tablet) 25 mg PO Q6H PRN PRN Reason: Anxiety Last Admin: 07/24/24 12:15 Dose: 25 mg Lamotrigine (Lamotrigine 100 Mg Tablet) 200 mg PO BID [facility] Last Admin: 07/24/24 08:36 Dose: 200 mg Lorazepam (Lorazepam 1 Mg Tablet) 1 mg PO DAILY PRN PRN Reason: Anxiety Last Admin: 07/24/24 08:35 Dose: 1 mg Magnesium Hydroxide (Milk Of Magnesia 30 Ml Oral.Susp) 30 ml PO DAILY PRN PRN Reason: Constipation Methadone HCl (Methadone Hcl 20 Mg/2 Ml Oral.Conc) 120 mg PO DAILY [facility] Last Admin: 07/24/24 08:00 Dose: 120 mg Nicotine Polacrilex (Nicotine Polacrilex 2 Mg Gum) 4 mg BUCCAL Q2H PRN PRN Reason: Nicotine Cravings Olanzapine (Olanzapine 5 Mg Tablet) 5 mg PO DAILY@1700 [facility] Olanzapine (Olanzapine 10 Mg Tablet) 10 mg PO DAILY [facility] Olanzapine (Olanzapine 10 Mg Tablet) 10 mg PO BID PRN PRN Reason: agitation Last Admin: 07/24/24 14:37 Dose: 10 mg Trazodone HCl (Trazodone Hcl 50 Mg Tablet) 50 mg PO BEDTIME MRX1 PRN PRN Reason: Insomnia Venlafaxine HCl (Venlafaxine Hcl Er 75 Mg Cap.Er.24h) 75 mg PO DAILY [facility] Last Admin: 07/24/24 08:35 Dose: 75 mg Venlafaxine HCl (Venlafaxine Hcl Er 150 Mg Cap.Er.24h) 150 mg PO DAILY [facility] Last Admin: 07/24/24 08:35 Dose: 150 mg Allergies Allergies Allergy/AdvReac Type Severity Reaction Status Date / Time diphenhydramine AdvReac Irritable Verified 07/18/24 12:59 [From Benadryl] morphine AdvReac Gastrointestinal Verified 07/18/24 12:59 Upset Assessment & Plan Assessment & Plan (1) Cocaine use disorder: Status: Acute Code(s): F14.10 - Cocaine abuse, uncomplicated (2) Opioid use disorder, severe, on maintenance therapy: Status: Acute Code(s): F11.20 - Opioid dependence, uncomplicated (3) Depression: Status: Acute Code(s): F32.A - Depression, unspecified Plan 07/19: DC topamax, caplyta as unhelpful. continue medications otherwise. verified ativan script only for 1 mg daily PRN, not TID as pt claims. D/W SW dispo plan. 07/20: poor sleep. HTN. increase HS clonidine to 0.3 mg. otherwise continue current mgmt. [facility] referral made. 07/21: c/o anxiety, focused on getting benzos, very dramatic emotional display in that effort. ended up walking out of the interview room when responses from MD were perceived to be inadequately supportive. awaiting bed at [facility]. do not modify benzo script. 07/22/2024: Schedule olanzapine 5 mg morning and bedtime. 07/23: no changes 07/24: pleased with the effect of zyprexa 5 BID. informed of discharge plan, anxiety elevated. working with CANDACE Rose to find a suitable facility in the area of her origin. Reason for continued inpatient stay Substantial Risk for: inability to function Time Spent With Patient Time: Total time managing care of this patient today _25___ minutes.
[2024-07-24 19:57] VITALS: BP 176/74; PULSE 87; RESP 18; TEMP 36.6; O2SAT 93
[2024-07-24] MEDS: Doxepin HCl 25 MG CAPSULE 100 MG PO (20:14)
[2024-07-25] MEDS: OLANZapine 10 MG TABLET PO ×4 (00:18→23:54)
[2024-07-25] MEDS: hydrOXYzine HCL 25 MG TABLET PO ×4 (00:18→23:54)
[2024-07-25 07:56] VITALS: BP 157/70; PULSE 82; RESP 16; TEMP 36.8; O2SAT 97
[2024-07-25] MEDS: methADONE HCl 20 MG/2 ML ORAL.CONC 120 MG PO (08:01)
[2024-07-25] MEDS: Venlafaxine HCl ER 75 MG CAP.ER.24H PO (08:41)
[2024-07-25] MEDS: Venlafaxine HCl ER 150 MG CAP.ER.24H PO (08:41)
[2024-07-25] MEDS: lamoTRIgine 100 MG TABLET 200 MG PO ×2 (08:42→20:42)
[2024-07-25] MEDS: LORazepam 1 MG TABLET PO (08:42)
[2024-07-25] MEDS: cloNIDine HCL 0.1 MG TABLET 0.3 MG PO (08:42)
--- NOTE | 2024-07-25 14:19 | P.PNPSI_ITS ---
Subjective Subjective Date of Service: 07/25/24 Reason For Visit: SI Interim History: pt feels it is going pretty well. states she has some options for where to go after discharge and continues to investigate her options. BP reviewed, noted to be quite elevated. pt amenable to increase clonidine to 0.4 TID. per staff, attending groups. some panic yesterday: i have nowhere to go. D/C . Mental Status Exam Mental Status Exam Narrative: adequately dressed and groomed. cooperative. no PMA/PMR. speech nml rate and loudness, increased amount, decr latency. thoughts linear and logical. no delusions or paranoia expressed. affect constricted, non-labile. No SI/HI/AVH expressed today. Diagnostics Vital Signs (24Hr): Vital Signs - 24 hr 07/24/24 14:33 07/24/24 19:57 07/25/24 07:56 Temperature 97.9 F 98.2 F Pulse Rate 80 87 82 Respiratory Rate 18 16 Blood Pressure 147/76 H 176/74 H 157/70 H Pulse Oximetry 93 97 Oxygen Delivery Method Room Air Room Air BMI result Body Mass Index 30.0 Labs 07/18/24 15:14 07/18/24 16:36 Medications Medications Current Medications Acetaminophen (Acetaminophen 325 Mg Tablet) 650 mg PO Q6H PRN PRN Reason: Headache/Pain Mild Scale (1-3) Al Hydroxide/Mg Hydroxide (Magnesium Hydrox/Alum Hydrox 30 Ml Oral.Susp) 30 ml PO Q6H PRN PRN Reason: Heartburn/Nausea Albuterol Sulfate (Albuterol Sulfate (0.083%) 2.5 Mg/3 Ml Vial.Neb) 5 mg INHALE Q4H PRN PRN Reason: Shortness Of Breath Albuterol Sulfate (Albuterol Sulfate 90 Mcg 8 Gm Inhaler) 90 puff INHALE Q4H PRN PRN Reason: Shortness of Breath Clonidine HCl (Clonidine Hcl 0.1 Mg Tablet) 0.1 mg PO TID PRN; Protocol PRN Reason: Anxiety Last Admin: 07/24/24 11:11 Dose: 0.1 mg Clonidine HCl (Clonidine Hcl 0.2 Mg Tablet) 0.4 mg PO TID IRMA; Protocol Doxepin HCl (Doxepin Hcl 25 Mg Capsule) 100 mg PO BEDTIME [facility] Last Admin: 07/24/24 20:14 Dose: 100 mg Fluticasone Propionate (Fluticasone Propionate Nasal 16 Gm [place]) 1 spray NOSTRIL-B DAILY [facility] Last Admin: 07/25/24 09:06 Dose: Not Given Hydroxyzine HCl (Hydroxyzine Hcl 25 Mg Tablet) 25 mg PO Q6H PRN PRN Reason: Anxiety Last Admin: 07/25/24 10:08 Dose: 25 mg Lamotrigine (Lamotrigine 100 Mg Tablet) 200 mg PO BID [facility] Last Admin: 07/25/24 08:42 Dose: 200 mg Lorazepam (Lorazepam 1 Mg Tablet) 1 mg PO DAILY PRN PRN Reason: Anxiety Last Admin: 07/25/24 08:42 Dose: 1 mg Magnesium Hydroxide (Milk Of Magnesia 30 Ml Oral.Susp) 30 ml PO DAILY PRN PRN Reason: Constipation Methadone HCl (Methadone Hcl 20 Mg/2 Ml Oral.Conc) 120 mg PO DAILY [facility] Last Admin: 07/25/24 08:01 Dose: 120 mg Nicotine Polacrilex (Nicotine Polacrilex 2 Mg Gum) 4 mg BUCCAL Q2H PRN PRN Reason: Nicotine Cravings Olanzapine (Olanzapine 5 Mg Tablet) 5 mg PO DAILY@1700 [facility] Last Admin: 07/24/24 17:25 Dose: 5 mg Olanzapine (Olanzapine 10 Mg Tablet) 10 mg PO DAILY [facility] Last Admin: 07/25/24 08:42 Dose: 10 mg Olanzapine (Olanzapine 10 Mg Tablet) 10 mg PO BID PRN PRN Reason: agitation Last Admin: 07/25/24 12:43 Dose: 10 mg Trazodone HCl (Trazodone Hcl 50 Mg Tablet) 50 mg PO BEDTIME MRX1 PRN PRN Reason: Insomnia Venlafaxine HCl (Venlafaxine Hcl Er 75 Mg Cap.Er.24h) 75 mg PO DAILY [facility] Last Admin: 07/25/24 08:41 Dose: 75 mg Venlafaxine HCl (Venlafaxine Hcl Er 150 Mg Cap.Er.24h) 150 mg PO DAILY [facility] Last Admin: 07/25/24 08:41 Dose: 150 mg Allergies Allergies Allergy/AdvReac Type Severity Reaction Status Date / Time diphenhydramine AdvReac Irritable Verified 07/18/24 12:59 [From Benadryl] morphine AdvReac Gastrointestinal Verified 07/18/24 12:59 Upset Assessment & Plan Assessment & Plan (1) Cocaine use disorder: Status: Acute Code(s): F14.10 - Cocaine abuse, uncomplicated (2) Opioid use disorder, severe, on maintenance therapy: Status: Acute Code(s): F11.20 - Opioid dependence, uncomplicated (3) Depression: Status: Acute Code(s): F32.A - Depression, unspecified Plan 07/19: DC topamax, caplyta as unhelpful. continue medications otherwise. verified ativan script only for 1 mg daily PRN, not TID as pt claims. D/W SW dispo plan. 07/20: poor sleep. HTN. increase HS clonidine to 0.3 mg. otherwise continue current mgmt. [facility] referral made. 07/21: c/o anxiety, focused on getting benzos, very dramatic emotional display in that effort. ended up walking out of the interview room when responses from MD were perceived to be inadequately supportive. awaiting bed at [facility]. do not modify benzo script. 07/22/2024: Schedule olanzapine 5 mg morning and bedtime. 07/23: no changes 07/24: pleased with the effect of zyprexa 5 BID. informed of discharge plan, anxiety elevated. working with CANDACE Rose to find a suitable facility in the area of her origin. 07/25: increase clonidine to 0.4 TID for HTN and anxiety. pt with improved affect, feels she has some options for discharge on . otherwise continue current mgmt. Reason for continued inpatient stay Substantial Risk for: inability to function and rapid decompensation Time Spent With Patient Time: Total time managing care of this patient today __25__ minutes.
[2024-07-25 14:37] VITALS: BP 178/93; PULSE 101
[2024-07-25] MEDS: cloNIDine HCL 0.2 MG TABLET 0.4 MG PO ×2 (14:39→20:42)
[2024-07-25 16:17] VITALS: BP 166/72; PULSE 80
[2024-07-25] MEDS: cloNIDine HCL 0.1 MG TABLET PO (16:19)
[2024-07-25] MEDS: OLANZapine 5 MG TABLET PO (17:10)
[2024-07-25 19:45] VITALS: PULSE 82; RESP 18; TEMP 36.5; O2SAT 95
[2024-07-25 20:42] VITALS: BP 177/91
[2024-07-25] MEDS: Doxepin HCl 25 MG CAPSULE 100 MG PO (20:42)
[2024-07-25 21:56] VITALS: BP 148/71; PULSE 79
[2024-07-26 07:33] VITALS: BP 141/70; PULSE 73; RESP 14; TEMP 36.5; O2SAT 97
[2024-07-26] MEDS: methADONE HCl 20 MG/2 ML ORAL.CONC 120 MG PO (08:06)
[2024-07-26] MEDS: OLANZapine 10 MG TABLET PO ×3 (08:16→20:59)
[2024-07-26] MEDS: LORazepam 1 MG TABLET PO (08:16)
[2024-07-26] MEDS: lamoTRIgine 100 MG TABLET 200 MG PO ×2 (08:17→20:58)
[2024-07-26] MEDS: Venlafaxine HCl ER 75 MG CAP.ER.24H PO (08:17)
[2024-07-26] MEDS: cloNIDine HCL 0.2 MG TABLET 0.4 MG PO ×3 (08:17→20:58)
[2024-07-26] MEDS: Venlafaxine HCl ER 150 MG CAP.ER.24H PO (08:17)
[2024-07-26] MEDS: hydrOXYzine HCL 25 MG TABLET PO ×2 (11:17→20:59)
[2024-07-26 12:48] VITALS: BP 143/79; PULSE 91
[2024-07-26] MEDS: cloNIDine HCL 0.1 MG TABLET PO (12:51)
--- NOTE | 2024-07-26 13:48 | HO.PSYCHPN ---
Subjective Subjective Date of Service: 07/26/24 Reason For Visit: SI Interim History: slept about 5 hours. BP reviewed, noted to be decreased today. phone interview at 1 today for [facility]. per staff, dep/anx 9. lots or PRNs. upset at having only 1 ativan available. slept 5.5 hours. falling asleep in groups. Mental Status Exam Mental Status Exam Narrative: adequately dressed and groomed. cooperative. no PMA/PMR. speech nml rate and loudness, increased amount, decr latency. thoughts linear and logical. no delusions or paranoia expressed. affect constricted, non-labile. No SI/HI/AVH expressed today. Diagnostics Vital Signs (24Hr): Vital Signs - 24 hr 07/25/24 14:37 07/25/24 16:17 07/25/24 19:45 Temperature 97.7 F Pulse Rate 101 H 80 82 Respiratory Rate 18 Blood Pressure 178/93 H 166/72 H Pulse Oximetry 95 Oxygen Delivery Method Room Air 07/25/24 20:42 07/25/24 21:56 07/26/24 07:33 Temperature 97.7 F Pulse Rate 79 73 Respiratory Rate 14 Blood Pressure 177/91 H 148/71 H 141/70 H Pulse Oximetry 97 Oxygen Delivery Method Room Air 07/26/24 12:48 Temperature Pulse Rate 91 Respiratory Rate Blood Pressure 143/79 H Pulse Oximetry Oxygen Delivery Method BMI result Body Mass Index 30.0 Labs 07/18/24 15:14 07/18/24 16:36 Medications Medications Current Medications Acetaminophen (Acetaminophen 325 Mg Tablet) 650 mg PO Q6H PRN PRN Reason: Headache/Pain Mild Scale (1-3) Al Hydroxide/Mg Hydroxide (Magnesium Hydrox/Alum Hydrox 30 Ml Oral.Susp) 30 ml PO Q6H PRN PRN Reason: Heartburn/Nausea Albuterol Sulfate (Albuterol Sulfate 90 Mcg 8 Gm Inhaler) 90 puff INHALE Q4H PRN PRN Reason: Shortness of Breath Clonidine HCl (Clonidine Hcl 0.1 Mg Tablet) 0.1 mg PO TID PRN; Protocol PRN Reason: Anxiety Last Admin: 07/26/24 12:51 Dose: 0.1 mg Clonidine HCl (Clonidine Hcl 0.2 Mg Tablet) 0.4 mg PO TID IRMA; Protocol Last Admin: 07/26/24 08:17 Dose: 0.4 mg Doxepin HCl (Doxepin Hcl 25 Mg Capsule) 100 mg PO BEDTIME [facility] Last Admin: 07/25/24 20:42 Dose: 100 mg Fluticasone Propionate (Fluticasone Propionate Nasal 16 Gm [place]) 1 spray NOSTRIL-B DAILY [facility] Last Admin: 07/26/24 08:48 Dose: Not Given Hydroxyzine HCl (Hydroxyzine Hcl 25 Mg Tablet) 25 mg PO Q6H PRN PRN Reason: Anxiety Last Admin: 07/26/24 11:17 Dose: 25 mg Lamotrigine (Lamotrigine 100 Mg Tablet) 200 mg PO BID [facility] Last Admin: 07/26/24 08:17 Dose: 200 mg Lorazepam (Lorazepam 1 Mg Tablet) 1 mg PO DAILY PRN PRN Reason: Anxiety Last Admin: 07/26/24 08:16 Dose: 1 mg Magnesium Hydroxide (Milk Of Magnesia 30 Ml Oral.Susp) 30 ml PO DAILY PRN PRN Reason: Constipation Methadone HCl (Methadone Hcl 20 Mg/2 Ml Oral.Conc) 120 mg PO DAILY [facility] Last Admin: 07/26/24 08:06 Dose: 120 mg Nicotine Polacrilex (Nicotine Polacrilex 2 Mg Gum) 4 mg BUCCAL Q2H PRN PRN Reason: Nicotine Cravings Olanzapine (Olanzapine 5 Mg Tablet) 5 mg PO DAILY@1700 [facility] Last Admin: 07/25/24 17:10 Dose: 5 mg Olanzapine (Olanzapine 10 Mg Tablet) 10 mg PO DAILY [facility] Last Admin: 07/26/24 08:16 Dose: 10 mg Olanzapine (Olanzapine 10 Mg Tablet) 10 mg PO BID PRN PRN Reason: agitation Last Admin: 07/26/24 12:55 Dose: 10 mg Trazodone HCl (Trazodone Hcl 50 Mg Tablet) 50 mg PO BEDTIME MRX1 PRN PRN Reason: Insomnia Venlafaxine HCl (Venlafaxine Hcl Er 75 Mg Cap.Er.24h) 75 mg PO DAILY [facility] Last Admin: 07/26/24 08:17 Dose: 75 mg Venlafaxine HCl (Venlafaxine Hcl Er 150 Mg Cap.Er.24h) 150 mg PO DAILY [facility] Last Admin: 07/26/24 08:17 Dose: 150 mg Allergies Allergies Allergy/AdvReac Type Severity Reaction Status Date / Time diphenhydramine AdvReac Irritable Verified 07/18/24 12:59 [From Benadryl] morphine AdvReac Gastrointestinal Verified 07/18/24 12:59 Upset Assessment & Plan Assessment & Plan (1) Cocaine use disorder: Status: Acute Code(s): F14.10 - Cocaine abuse, uncomplicated (2) Opioid use disorder, severe, on maintenance therapy: Status: Acute Code(s): F11.20 - Opioid dependence, uncomplicated (3) Depression: Status: Acute Code(s): F32.A - Depression, unspecified Plan 07/19: DC topamax, caplyta as unhelpful. continue medications otherwise. verified ativan script only for 1 mg daily PRN, not TID as pt claims. D/W SW dispo plan. 07/20: poor sleep. HTN. increase HS clonidine to 0.3 mg. otherwise continue current mgmt. [facility] referral made. 07/21: c/o anxiety, focused on getting benzos, very dramatic emotional display in that effort. ended up walking out of the interview room when responses from MD were perceived to be inadequately supportive. awaiting bed at [facility]. do not modify benzo script. 07/22/2024: Schedule olanzapine 5 mg morning and bedtime. 07/23: no changes 07/24: pleased with the effect of zyprexa 5 BID. informed of discharge plan, anxiety elevated. working with CANDACE Rose to find a suitable facility in the area of her origin. 07/25: increase clonidine to 0.4 TID for HTN and anxiety. pt with improved affect, feels she has some options for discharge on . otherwise continue current mgmt. 07/26: BPs much improved with clonidine dose increase. [facility] interview completed, pt reportedly declined bed at [facility]. planning for discharge tomorrow. Reason for continued inpatient stay Substantial Risk for: stable for discharge Time Spent With Patient Time: Total time managing care of this patient today __25__ minutes.
[2024-07-26 14:56] VITALS: BP 162/81; PULSE 83
[2024-07-26] MEDS: OLANZapine 5 MG TABLET PO (16:33)
[2024-07-26 20:00] VITALS: BP 137/69; PULSE 74; RESP 16; TEMP 36.4; O2SAT 93
[2024-07-26 20:58] VITALS: BP 146/80
[2024-07-26] MEDS: Doxepin HCl 25 MG CAPSULE 100 MG PO (20:58)
[2024-07-27 07:25] VITALS: BP 147/91; PULSE 76; RESP 16; TEMP 36.5; O2SAT 96
[2024-07-27] MEDS: methADONE HCl 20 MG/2 ML ORAL.CONC 120 MG PO (08:07)
[2024-07-27] MEDS: Fluticasone Propionate Nasal 16 GM SPRAY 1 SPRAY NOSTRIL-B (08:48)
[2024-07-27] MEDS: Venlafaxine HCl ER 75 MG CAP.ER.24H PO (08:48)
[2024-07-27] MEDS: lamoTRIgine 100 MG TABLET 200 MG PO (08:48)
[2024-07-27] MEDS: OLANZapine 10 MG TABLET PO (08:48)
[2024-07-27] MEDS: LORazepam 1 MG TABLET PO (08:48)
[2024-07-27] MEDS: Venlafaxine HCl ER 150 MG CAP.ER.24H PO (08:48)
[2024-07-27] MEDS: cloNIDine HCL 0.2 MG TABLET 0.4 MG PO (08:49)
[2024-07-27] MEDS: hydrOXYzine HCL 25 MG TABLET PO (08:50)
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
--- NOTE | 2024-07-27 14:04 | PC.NURSE ---
Paula called the unit, asked for the last dose letter to be sent to [facility] ([facility] Last dose letter sent per patient request at [phone] to [phone].
== END 2024-07-27 12:29 | disposition home or self-care (01) | DRG 881 ==
LOC: HO.ED 13:48 → HO.PADLT16 22:29
PROVIDERS: Admitting Provider Psychiatry & Neurology Psychiatry; Emergency Provider Emergency Medicine; Visit Provider Psychiatry & Neurology Psychiatry
DX: F32.A Depression, unspecified (principal); R45.851 Suicidal ideations; F11.20 Opioid dependence, uncomplicated; F14.10 Cocaine abuse, uncomplicated; F17.210 Nicotine dependence, cigarettes, uncomplicated; Z71.6 Tobacco abuse counseling; Z79.899 Other long term (current) drug therapy
CPT/HCPCS: 36415; 80053; 80061; 80307; 81001; 81025; 82607; 82746; 83036; 84439; 84443; 85025; 87086; 93005; 99285

== ENCOUNTER → 2024-07-18 16:27 | Outpatient (BNV) | payer MEDICARE, SELFPAY | PROVIDERS: Admitting Provider Psychiatry & Neurology Psychiatry; Emergency Provider Emergency Medicine; Visit Provider Internal Medicine Cardiovascular Disease | DX: R94.31 Abnormal electrocardiogram [ECG] [EKG] (principal) | CPT/HCPCS: 93010 ==

== ENCOUNTER → 2024-07-18 22:27 | Outpatient (BNV) | payer OTHER, SELFPAY | PROVIDERS: Admitting Provider Psychiatry & Neurology Psychiatry; Emergency Provider Emergency Medicine; Visit Provider Psychiatry & Neurology Psychiatry | DX: F32.2 Major depressive disorder, single episode, severe without psychotic features (principal); F14.10 Cocaine abuse, uncomplicated; F11.20 Opioid dependence, uncomplicated | CPT/HCPCS: 90792 ==